=== PATIENT | female | born 1985 | race Caucasian/White ===

== ENCOUNTER 2019-02-21 06:10 | Day surgery (SDC) | payer BC, SELFPAY ==
[2018-12-11 14:10] VITALS: BMI 22.3
[2019-02-05 16:14] VITALS: BMI 22.3
--- NOTE | 2019-02-05 16:27 | HP.PCM_ITS ---
- Problem List (1) Sterilization Status: Acute History and Physical Date of Admission: 02/21/19 Vital Signs 02/05/19 Body Mass Index (BMI) 22.3 02/05/19 Height 5 ft 5 in 02/05/19 Weight: 122 lb 02/05/19 Body Mass Index (BMI) 20.2 02/05/19 Blood Pressure 116/82 H Intake Visit Reasons: pre op Chief Complaint: pre op Lap Bilateral Salpingectomy Steward/Stewardess Bath Required: No Is patient in pain?: No Allergies hydrocodone bitartrate [From Vicodin] Adverse Reaction (Verified 02/05/19 16:14) Nausea Medications levonorgestrel-ethinyl estradiol 0.1 mg-20 mcg tablet 1 tab PO DAILY #84 tab 05/18/18 [Rx Confirmed 02/05/19] Is last menstrual period known: No Post menopausal: No Patient : No : No [facility] Medical History History of shingles (Resolved) Family History Father Hypertension Grandfather CVA (cerebral vascular accident) Grandmother CVA (cerebral vascular accident) Social History Smoking Status: Never smoker second hand exposure: No alcohol intake: never substance use type: does not use what type of physical activity do you participate in: running frequency: 1-2 times per week duration: 15-30 minutes/day seatbelt use: always additional social history: [employer] works at [employer] pre op: Details: J CARLOS DUBOIS is a 34 year old who presents for preop visit. she is having her sterilization surgery. Female Reproductive History Questions: Metorrhagia: No, Sexually active: Yes Menopausal Symptoms: No night sweats Pregancy History 2 Elective abortions Hx Para 2 Spontaneous abortions Hx # Term Pregnancies Ectopic pregnancies Hx # Pregnancies Multiple births # of living children Past Pregnancies Del. Date Name GA/Weeks Outcome Route Bth Weight Infant Gen Labor Lgth Anesthesia Del Locatn Provider FOB Unknown [place] 2012 7lbs 5ozs [facility] CATE Unknown 2017 Tamir live - full term [place] CATE ROS Const Constitutional: Denies fatigue, night sweats, weight gain or weight loss ENT ENT: Reports system reviewed and no additional complaints, except as docu Cardio Card: Denies chest pain Resp Resp: Denies cough or dyspnea GI GI: Reports as per HPI; denies abdominal pain, constipation, nausea or vomiting : Denies nipple discharge, urinary frequency, urinary incontinence, urinary hesitancy, urinary urgency, vaginal discharge, vaginal dryness, vaginal odor or vaginal itching Musc Musc: Denies joint pain, back pain or muscle weakness Skin Skin/Breast: Denies hair loss, change in hair, dry skin, breast lump, breast pain, breast skin changes or nipple discharge Neuro Neuro: Reports system reviewed and no additional complaints, except as docu Psych Psych: Reports system reviewed and no additional complaints, except as docu Endo Endo: Denies cold intolerance, excessive sweating, heat intolerance or increased thirst Thomas/Lymph Hematologic/Lymphatic: Denies easy bleeding, Denies easy bruising, Denies enlarged lymph nodes Exam Const General: cooperative, healthy appearing, comfortable, no acute distress, well developed Orientation: alert [facility] Head: normal to inspection, normocephalic Ears: hearing grossly normal bilaterally, external ears normal Nose: external nose normal, nares normal Face and sinus: normal facial exam Neck Neck: normal visual inspection, no lymphadenopathy Thyroid: thyroid normal Chest Chest palpation & inspection: normal inspection of the chest Resp Effort & Inspection: normal respiratory effort Cardio Rate: regular rate GI Inspection: normal to inspection, non-distended Palpation: soft, no hepatosplenomegaly Musc Other: gross motor intact no deficits, full bilateral strength Skin General: no rashes or lesions noted Neuro General: alert, awake, moves all extremities, no focal motor deficits Motor: muscle tone normal throughout Extrem General: normal to inspection, no pedal edema Psych Appearance: grossly normal Mental Status: mental status grossly normal Affect: normal affect Speech and Movement: speech and movement normal Assessment & Plan Problems 1. Sterilization Z30.2 Plan discussed surgical risks including risks of anesthesia, infection, bleeding, injury to bowel, bladder or blood vessels, and patient wishes to proceed with surgery. Coding Level of Care Code No Charge Diagnoses Sterilization Z30.2 UPDATE- I have seen the patient and performed any clinically relevant updates to the history and physical exam. Avani Villarreal MD
--- NOTE | 2019-02-21 | FALS_PTH ---
PATIENT: J CARLOS DUBOIS LOC: [facility] [place] U#:[id number] AGE/SX: 34/F ROOM: RE02/21/[address]: Dr. Avani Villarreal MD : 1985 BED: DIS: 02/21/2019 SPEC #: [id number] RECD: 02/21/19 12:07 STATUS: SANDRA REBarb #: [id number] DILEEP: 02/21/19 00:[address]: Avani Villarreal DEPT: SURGICAL PATHOLOGY RECD BY: Dougie Hunter ENTERED: 02/21/19 12:08 SP TYPE: FALL TUBES OTHR DR: No Primary Care Phys Tissues: Fallopian tube Procedures: Surgery Specimen Level II HEADER OPERATION: Laparoscopic salpingectomy PRE-OP DIAGNOSIS: Requests sterilization TISSUE SUBMITTED: Bilateral fallopian tubes MICROSCOPIC DIAGNOSIS Right and left fallopian tubes, salpingectomies: Complete segments of fallopian tubes. Benign paratubal cysts. AM:mary ann 02/22/19 MICROSCOPIC DESCRIPTION Slides are reviewed. GROSS DESCRIPTION Received is one container labeled with the patient's name and designated bilateral fallopian tubes. The specimen consists of bilateral fallopian tubes including fimbrial ends measuring 6 cm in length and 0.7 cm in diameter and 7 cm in length and 0.5 cm in diameter. Sections do not reveal any mass lesion. The fallopian tubes are not identified as right or left. Sections reveal unremarkable cut surfaces. Stone Mill Operator sections are submitted in two cassettes with each cassette containing one fallopian tube. / BEVERLEY:mary ann 02/21/19 TC:5 CPT: 18322 x2
[2019-02-21 06:32] LABS: Internal QC Validated? YES +Cl - CLEAR BKGD; Pregnancy, Urine Negative Negative
[2019-02-21 06:37] VITALS: BP 120/81; PULSE 73; RESP 16; TEMP 37.1; O2SAT 100; BMI 22.8
[2019-02-21 06:42] LABS: Hemoglobin 13.7 g/dl (12.0-15.0); Mean Corp Hgb Conc 34.3 g/gl (32-36); Mean Corpuscular Hgb 29.3 pg (27.0-32.0); Mean Corpuscular Volume 85.7 fL (81-99); Mean Platelet Vol. 10.8 fl (6.2-12.0); Platelet Count 239 K/mm3 (150-450); RBC Distribution Width CV 12.9 % (11.6-14.6); RBC Distribution Width SD 40.4 fl (35.1-43.9); Red Blood Count 4.67 M/mm3 (4.2-5.4); White Blood Count 7.2 K/mm3 (4.4-11.0)
[2019-02-21 06:43] LABS: Scan Indicated on CBC? Y/N NO
--- NOTE | 2019-02-21 06:54 | OP.PCM_ITS ---
Problem List (1) Sterilization Status: Acute Report of Operation Date of Procedure: 02/21/19 Pre-Operative Diagnosis: sterilization Post-Operative Diagnosis: same Surgery/Procedure Performed:: laparoscopic bilateral salpingectomy Description of Surgical Findings:: normal ovaries uterus tubes cork insulator helper: Char Dutta Type of Anesthesia:: General Special Medications: none Specimen's removed: tubes Drains: none Estimated Blood Loss (mL): minimal Fluids Replaced: crystalloid Description of Procedure: Patient was taken in the operating room and was placed under general anesthesia was prepped and draped in normal sterile fashion in the dorsal lithotomy position. Bladder was drained of clear urine and SCDs were on preoperatively. Uterus was sounded and a uterine manipulator was placed after dilating. Attention was then paid to the abdominal portion of the procedure and the umbilicus was elevated with towel clamps and injected with Marcaine and after a 5 mm incision was made and the Veress needle was entered into the abdomen confirmed to be intra-abdominal with a low opening pressure of less than 5 mmHg. Abdomen was insufflated with CO2 gas and a 5 mm optical trocar was placed under direct visualization. A left lower quadrant 5 mm port and a 5 mm port suprapubically replaced under direct visualization. Uterus was well visualized and bilateral fallopian tubes identified and bilateral tubes were elevated and transecting across the mesosalpinx and the attachment to the uterine corpus bilaterally the tubes were removed without complication. Excellent hemostasis was noted. Fallopian tubes were removed through the lower port sites without complication. Liver and upper abdomen were visualized notably within normal limits and no other gross abnormalities were seen in the abdomen. All instruments removed from the abdomen after gas was desufflated. Port sites were closed with 3-0 Monocryl Steri's and op sites were applied. All instruments removed from the vagina and patient was awoken and taken recovery in stable condition. Grafts/Implants Used: none - Complications none - Admit VTE Documentation VTE Present on Admission: No
--- NOTE | 2019-02-21 06:55 | DCINST_ITS ---
Discharge Diet: No Restrictions - Increase fluid intake for the next 48 hours. Discharge Activity: Return to Normal Activity, May Drive - when you are no longer taking narcotic pain medications., May Shower, May Take a Tub Bath - in 7 days Additional Activity Instructions:: Ambulate often the next week after surgery. Nothing in the vagina for 5 days. Call your doctor if your incision/area has: Continuous Slow Oozing, Sudden Increased Bleeding, Increased Pain/ Swelling, Increased Redness, Foul Smelling Discharge Call your doctor if you observe: Fever of 101 or Higher Allergies/Adverse Reactions: Allergies Sulfa (Sulfonamide Antibiotics) Allergy (Verified 02/14/19 13:02) Hives hydrocodone bitartrate [From Vicodin] Adverse Reaction (Verified 02/14/19 13:02) Nausea Medications to take at Discharge levonorgestrel-ethinyl estradiol 0.1 mg-20 mcg tablet 1 tab PO DAILY #84 tab 05/18/18 Primary Care Physician: Care Physician,No Primary [Primary Care Provider] - Test Results: Test results from this visit will be discussed in further detail at your follow- up appointment, if applicable. Please Follow Up With: vAani Villarreal MD - [phone]
[2019-02-21] MEDS: Bupivacaine 0.25% 30 ML Vial (08:37)
[2019-02-21 08:49] VITALS: BP 120/81; BP 131/97; PULSE 107; RESP 16; TEMP 36.6; O2SAT 100
[2019-02-21 09:00] VITALS: BP 120/81; BP 128/77; PULSE 66; RESP 16; O2SAT 100
[2019-02-21 09:14] VITALS: BP 120/81; BP 136/95; PULSE 66; RESP 16; O2SAT 100
[2019-02-21 09:18] VITALS: BP 120/81; BP 130/90; PULSE 65; RESP 16; TEMP 36.3; O2SAT 100
[2019-02-21 09:39] VITALS: BP 120/81
== END 2019-02-21 09:55 | disposition home or self-care (01) ==
LOC: SDC 06:12 → AC 06:13
PROVIDERS: Referring Provider Obstetrics & Gynecology; Visit Provider Obstetrics & Gynecology
PROC: (CPT 58661; principal; 2019-02-21 07:45)
DX: Z30.2 Encounter for sterilization (principal); N83.8 Other noninflammatory disorders of ovary, fallopian tube and broad ligament; Z88.5 Allergy status to narcotic agent
CPT/HCPCS: 58661; 36415; 81025; 85027; 86850; 86900; 88302; J7120; J2405

== ENCOUNTER → 2021-03-01 10:32 | Outpatient (CLI) | payer BC, SELFPAY ==
[2021-01-12 15:31] VITALS: BMI 24.3
--- NOTE | 2021-03-01 10:34 | US_ITS ---
History: Menorrhagia Pelvic ultrasound: Findings: Endovaginal ultrasound imaging of the pelvis demonstrates the uterus to measure 8.5 cm in length with endometrial thickness of 9 mm. Uterine echogenicity is heterogeneous secondary to small fibroids measuring less than 2 cm in diameter. Ovaries are normal in size, echogenicity and perfusion. Right ovary measures 2.6 x 2.9 x 1.7 cm. Left ovary measures 1.7 x 2.5 x 1.2 cm. No adnexal mass or pelvic fluid collection. IMPRESSION: Fibroid uterus. at 0958 Reported and signed by: Yahir Phipps MD Electronically Signed: Yahir Phipps MD at 9:57 EDT Tel , Service support , US/Pelvic (Non )
--- NOTE | 2021-03-01 10:34 | US_ITS ---
History: Menorrhagia Pelvic ultrasound: Findings: Endovaginal ultrasound imaging of the pelvis demonstrates the uterus to measure 8.5 cm in length with endometrial thickness of 9 mm. Uterine echogenicity is heterogeneous secondary to small fibroids measuring less than 2 cm in diameter. Ovaries are normal in size, echogenicity and perfusion. Right ovary measures 2.6 x 2.9 x 1.7 cm. Left ovary measures 1.7 x 2.5 x 1.2 cm. No adnexal mass or pelvic fluid collection. IMPRESSION: Fibroid uterus. at 0958 Reported and signed by: Yahir Phipps MD Electronically Signed: Yahir Phipps MD at 9:57 EDT Tel , Service support , US/Transvaginal Non-
== END ==
PROVIDERS: Referring Provider Nurse Practitioner Women's Health; Visit Provider Nurse Practitioner Women's Health
DX: N92.1 Excessive and frequent menstruation with irregular cycle (principal)
CPT/HCPCS: 76830; 76856

== ENCOUNTER → 2022-05-10 | Outpatient (CLI) | payer BC, SELFPAY ==
[2022-05-18 16:33] LABS: HPV APTIMA, High Risk Negative (Negative)
== END | disposition home or self-care (01) ==
LOC: LABSPEC 16:01
PROVIDERS: Visit Provider Obstetrics & Gynecology
DX: Z12.4 Encounter for screening for malignant neoplasm of cervix (principal)
CPT/HCPCS: 87624; 88175; G0145

== ENCOUNTER → 2023-03-03 | Outpatient (CLI) | payer BC, SELFPAY ==
--- NOTE | 2023-03-03 11:30 | EMB_PTH ---
PATIENT: J CARLOS DUBOIS LOC: [facility] U#:[id number] AGE/SX: 38/F ROOM: RE03/03/[address]: Dr. Trinidad Polk DO : 1985 BED: DIS: 03/03/2023 SPEC #: [id number] RECD: 03/03/23 15:47 STATUS: SANDRA ASHER #: [id number] DILEEP: 03/03/23 11:[address]: Trinidad Polk DEPT: SURGICAL PATHOLOGY RECD BY: Ting Barillas ENTERED: 03/06/23 09:31 SP TYPE: ENDOM BX/C RAFA DR: No Primary Care Phys Tissues: Endometrium, NOS Procedures: Surgery Specimen Level IV HEADER OPERATION: Endometrial biopsy PRE-OP DIAGNOSIS: Menorrhagia TISSUE SUBMITTED: Endometrial lining MICROSCOPIC DIAGNOSIS Endometrial biopsy: Proliferative endometrium. Fragments of benign endocervical mucosa. SJ:mary ann 03/07/2023 MICROSCOPIC DESCRIPTION Slides are reviewed. GROSS DESCRIPTION Received is one container labeled with the patient's name and not further designated. The specimen consists of multiple irregular fragments of martin soft tissue that in aggregate measure 1.0 x 0.5 x 0.1 cm. The specimen is totally submitted in one cassette. / SJ:mary ann 03/06/2023 TC:4 CPT: 76265
== END | disposition home or self-care (01) ==
LOC: LABSPEC 15:56
PROVIDERS: Referring Provider Obstetrics & Gynecology; Visit Provider Obstetrics & Gynecology
DX: N92.0 Excessive and frequent menstruation with regular cycle (principal)
CPT/HCPCS: 88305

== ENCOUNTER → 2023-03-20 | Outpatient (CLI) | payer BC, SELFPAY ==
[2023-03-20 15:40] LABS: Absolute Lymphocyte Count 2.25 X10^3/uL (0.83-4.51); Absolute Neutrophil Count 4.6 X10^3/uL (2.0-7.7); Basophil# 0.05 X10^3/uL; Basophil% 0.7 % (0-1); Eosinophil# 0.07 X10^3/uL; Eosinophils% 0.9 % (0-5); Hematocrit 37.1 % (37-47); Hemoglobin 12.4 g/dL (12.0-15.0); Lymphocyte # 2.25 X10^3/ul (0.83-4.51); Lymphocyte % 30.3 % (19-41); Mean Corp Hgb Conc 33.4 g/dL (32-36); Mean Corpuscular Hgb 29.6 pg (27.0-32.0); Mean Corpuscular Volume 88.5 fL (81-99); Mean Platelet Vol. 11.3 fl (6.2-12.0); Monocyte# 0.42 X10^3/uL; Monocyte% 5.7 % (0-10); NRBC Flagged by Analyzer 0 % (0-5); Neutrophil # 4.61 X10^3/uL (2.7-7.7); Neutrophil % 62.1 % (47-70); Platelet Count 242 K/mm3 (150-450); RBC Distribution Width CV 12.9 % (11.6-14.6); Red Blood Count 4.19 M/mm3 (4.2-5.4); White Blood Count 7.4 K/mm3 (4.4-11.0)
[2023-03-20 16:16] LABS: ALB/GLOB Ratio 0.9 RATIO (0.9-2.4); AST(SGOT) 12 U/L (15-37); Alanine Aminotransfer ALT/SGPT 18 U/L (13-56); Albumin, Serum 3.7 g/dL (3.2-5.0); Alkaline Phosphatase 54 U/L (45-117); Anion Gap 4 (5-15); BUN 11 mg/dL (7-18); Calcium,Total 9.2 mg/dL (8.5-10.1); Chloride 107 mmol/L (98-107); Creatinine, Serum 0.85 mg/dL (0.55-1.02); EST Glomerular Filtration Rate 81 mL/min (>60); Est Glom Filt Rate - Afr Amer 98 mL/min (>60); Globulin 4.2 g/dL (2.2-4.2); Glucose 101 mg/dL (74-106); Potassium 3.7 mmol/L (3.5-5.1); Protein, Total 7.9 g/dL (6.4-8.2); Sodium Level 138 mmol/L (136-145)
== END | disposition home or self-care (01) ==
LOC: BIMLAB 13:46
PROVIDERS: PCP Internal Medicine; Referring Provider Internal Medicine; Visit Provider Internal Medicine
DX: I10 Essential (primary) hypertension (principal)
CPT/HCPCS: 36415; 80053; 84443; 85025

== ENCOUNTER 2023-04-18 12:38 | Day surgery (SDC) | payer BC, SELFPAY ==
--- NOTE | 2023-04-18 10:16 | PCM.HP.BLA ---
History and Physical Date of Admission: 04/18/23 Intake Vital Signs 03/03/2311:07 03/20/2313:15 04/05/2314:04 04/05/2314:15 Height 5 ft 1 in 5 ft 1 in 5 ft 1 in 5 ft 1 in Weight: 127 lb 4 oz 129 lb BMI 24.0 24.3 BP 126/84 H 120/90 H Blood Pressure Location Lt brachial Position Sitting Respiration 18 Pulse 84 Pulse Source Monitor Temp 96.6 F L Pulse Oximetry (%) 99 Oxygen Delivery Method room air Intake Visit Reasons: pino ablation Allergies Sulfa (Sulfonamide Antibiotics) Allergy (Verified 04/05/23 14:16) Hiveshydrocodone bitartrate [From Vicodin] Adverse Reaction (Verified 04/05/23 14:16) Nausea Medications medroxyprogesterone 2.5 mg tablet (Provera) 2.5 mg PO DAILY #30 tabs 05/10/22 [Rx Confirmed 04/05/23] Post menopausal: No Patient : No : No [facility] Medical History History of shingles Menorrhagia with irregular cycle Surgical History Status post bilateral salpingectomy (~02/21/19) Family History Father HypertensionGrandfather CVA (cerebral vascular accident)Grandmother CVA (cerebral vascular accident) Social History household members: spouse and children number of children: 2 current occupational status: employed current occupation: aide at [employer] Smoking Status: Never smoker Electronic Cigarette Use: not used second hand exposure: No alcohol intake: never substance use type: does not use what type of physical activity do you participate in: running frequency: 1-2 times per week duration: 15-30 minutes/day seatbelt use: always do you feel safe at home: Yes additional social history: Yannick works at [employer] HPI pino ablation Details: J CARLOS DUBOIS is a 38 year old who presents for preop hysteroscopy Pino ablation. She had a tubal ligation and is using control for heavy periods. Ultrasound shows small intramural fibroids and a normal endometrium. The uterus measures 8.5 cm in length. Her endometrial biopsy was benign. History 2 Elective abortions Hx Para 2 Spontaneous abortions Hx # Term Pregnancies Ectopic pregnancies Hx # Pregnancies Multiple births # of living children Past Pregnancies Del. Date Name GA/Weeks Outcome Route Bth Weight Infant Gen Labor Lgth Anesthesia Del Locatn Provider FOB Unknown [place] 2012 7lbs 5ozs [facility] CATE Unknown 2017 Tamir live - full term [place] CATE ROS Const ROS Unobtainable: All systems reviewed & are unremarkable except as noted in H Resp Resp: Reports system reviewed and no additional complaints, except as documented; Denies cough GI GI: Reports as per HPI Psych Psych: Reports system reviewed and no additional complaints, except as documented Exam Const General: cooperative, healthy appearing, comfortable and no acute distress Resp Effort & Inspection: normal respiratory effort Skin General: no rashes or lesions noted Psych Appearance: grossly normal Speech and Movement: speech and movement normal Coding Level of Care Code Off vis,est,level 4 Diagnoses Menorrhagia with irregular cycle N92.1 Assessment and Plan Assessment and Plan (1) Menorrhagia with irregular cycle: Status: Acute Plan: After discussing the patient's diagnosis and treatment plan options, patient wishes to proceed with surgical management. I have discussed with the patient the risks, benefits, and alternatives of the procedure which include but are not limited to risks of anesthesia, bleeding, infection, possible damage to bowel, bladder, or surrounding vasculature which could lead to additional surgery to evaluate any complications. Patient agrees to procedure and wishes to proceed. ACOG/uptodate references given for additional information regarding procedure. plan for hysteroscopy D&C, pino ablation.
[2023-04-18 13:17] VITALS: BP 119/91; PULSE 66; RESP 16; TEMP 37; O2SAT 100; BMI 24.2
[2023-04-18] MEDS: Lactated Ringers 1,000 ML 15 ML IV (13:30)
--- NOTE | 2023-04-18 14:25 | EMB_PTH ---
PATIENT: J CARLOS DUBOIS [place] [facility] [place][id number] AGE/SX: 38/F ROOM: RE04/18/[address]: Dr. Trinidad Polk DO : 1985 BED: DIS: 04/18/2023 SPEC #: [id number] RECD: 04/18/23 16:19 STATUS: SANDRA JANGBarb #: [id number] DILEEP: 04/18/23 14:[address]: Trinidad Polk DEPT: SURGICAL PATHOLOGY RECD BY: Negro Maldonado ENTERED: 04/19/23 07:15 SP TYPE: ENDOM BX/C OTHR DR: Dr. Tish Castro MD Tissues: Endometrium, NOS Procedures: Surgery Specimen Level IV HEADER OPERATION: Hysteroscopy Hanna, uterine ablation PRE-OP DIAGNOSIS: Menorrhagia with irregular cycle TISSUE SUBMITTED: Endometrial curettings MICROSCOPIC DIAGNOSIS Endometrium, curettings: Secretory endometrium. Rare strips of benign superficial endocervix. AM:mary ann 04/20/2023 MICROSCOPIC DESCRIPTION Slides are reviewed. GROSS DESCRIPTION Received in fixative is one container labeled with the patient's name and designated endometrial curettings. The specimen consists of multiple irregular fragments of pink-martin soft tissue that in aggregate measure 2.5 x 1.5 x 0.2 cm. The specimen is totally submitted in one cassette. / SJ:mary ann 04/19/2023 TC:5 CPT: 29672
--- NOTE | 2023-04-18 14:28 | DCINST_ITS ---
Discharge Instructions Diet Discharge Diet: No restrictions Activity Discharge Activity: Return to Normal Activity, May Shower and May Take a Tub Bath (after 1 week) May resume sexual activity in: 1-2 weeks Weight Bearing Status: Weight bearing as tolerated Lifting Restrictions: none Dressing / Incision Call your doctor if you observe: Fever of 101 or Higher, Using more than 1 pad per hour, Shortness of breath and Uncontrolled pain Follow Up Care Please Follow Up With: Trinidad Polk DO When: Call [phone] to schedule appointment. Test Results: Test results from this visit will be discussed in further detail at your follow- up appointment, if applicable. Discharge Plan Admission Primary Reason for Your Visit: uterine ablation Attending Provider: Trinidad Polk Primary Care Provider: Tish Castro Instructions Patient Instructions: Endometrial Ablation Discharge Orders/Prescriptions Prescriptions: Discontinued medroxyprogesterone [Provera] 2.5 mg tablet 2.5 mg PO DAILY Qty: 30 0RF Referrals / Follow Up: Tish Castro MD [Primary Care Provider] - Disposition Disposition (needs filled in before D/C Order can be placed): Home, Self Care
[2023-04-18] MEDS: Lidocaine 1% (30 ml sdv) 30 ML Vial (15:06)
[2023-04-18 15:15] VITALS: BP 102/75; BP 119/91; PULSE 72; RESP 14; TEMP 36.3; O2SAT 100
--- NOTE | 2023-04-18 15:22 | OP.PCM_ITS ---
Problems Associated Problem List Diagnoses (1) Menorrhagia with irregular cycle: Report of Operation Date of Procedure: 04/18/23 Pre-Operative Diagnosis: menorrhagia Post-Operative Diagnosis: menorrhagia Surgery/Procedure Performed:: hysteroscopy Dilation and curettage, hanna endometrial ablation Description of Surgical Findings:: normal uterus and cervix. post hanna showed adequate burn of entire endometrium. Surgeon: Trinidad Polk program project analyst: None Type of Anesthesia: MAC and Topical Anesth Anesthesiologist: Noah James Specimen's removed: endometrial curetting's Drains: none Estimated Blood Loss (mL): 5cc Description of Procedure: Patient was prepped and draped in a normal sterile fashion under MAC anesthesia. A weighted speculum was placed in the vagina and the anterior lip of the cervix was grasped with a single-tooth tenaculum. A paracervical block was placed with 1% lidocaine. Cervix was progressively dilated to allow passage of a 5 mm hysteroscope. The lining was fully visualized and noted to have a normal appearing, proliferative endometrium. Uterine sounded to 8 cm cm. Curettage was performed and specimen was sent to pathology. The Hanna device was opened and the cavity length was found to be 5 cm. Device was inserted into the uterus and balloon inflated and device deployed. Integrity of the cavity was confirmed and a 2 minute treatment cycle was completed without complication. All instruments were removed from the vagina and excellent hemostasis was noted. Patient was awoken and taken to recovery in stable condition. Admit VTE Documentation VTE Present on Admission: No VTE Mechan Device Prophylaxis: SCD's VTE Pharm Prophylaxis ordered?: Yes Multi Select Codes Urinary/Genital Urinary/Genital CPT Codes: 46535 Hanna/Novasure and 45330 Hysteroscopy,EMC, Polypectomy
[2023-04-18 15:31] VITALS: BP 119/91; BP 129/85; PULSE 77; RESP 18; O2SAT 100
[2023-04-18 15:45] VITALS: BP 119/91; BP 125/91; PULSE 73; RESP 18; O2SAT 100
[2023-04-18 15:49] VITALS: BP 119/91; BP 128/89; PULSE 67; RESP 18; TEMP 36.6; O2SAT 100
[2023-04-18 16:37] VITALS: BP 119/91
== END 2023-04-18 16:41 | disposition home or self-care (01) ==
LOC: SDC 12:43 → AC 12:46
PROVIDERS: PCP Internal Medicine; Referring Provider Obstetrics & Gynecology; Visit Provider Obstetrics & Gynecology
PROC: 0U5B8ZZ Destruction of Endometrium, Via Natural or Artificial Opening Endoscopic (ICD-10-PCS; CPT 58558; principal; 2023-04-18 14:10)
DX: N92.1 Excessive and frequent menstruation with irregular cycle (principal)
CPT/HCPCS: 58353; 00940; 86850; 86900; 86901; 88305; J7120; J2405